=== PATIENT | male | born 1970 | race Caucasian/White ===

== ENCOUNTER 2017-06-26 18:20 | Emergency (ER) | payer SELFPAY ==
[2017-06-26] MEDS ORDERED: Albuterol/Ipratropium 3.0-0.5 MG/3 ML Neb Soln NEB ONE (18:38)
[2017-06-26] MEDS ORDERED: methylPREDNISolone Sodium Succinate 125 MG/2 ML SDV IVPUSH ONE (18:43)
[2017-06-26] MEDS ORDERED: Sodium Chloride 0.9% 1,000 ML IV ONE (18:43)
--- NOTE | 2017-06-26 18:43 | EDM.PDOC ---
ED HPI GENERAL MEDICAL PROBLEM - General Chief Complaint: Respiratory Problem Stated Complaint: CHEST HARD BREATHING Time Seen by Provider: 06/26/17 18:39 Source of Information: Reports: Patient History Limitations: Reports: No Limitations - History of Present Illness INITIAL COMMENTS - FREE TEXT/NARRATIVE: History of present illness: [40-year-old male comes in complaining of cough 2 weeks with increasing shortness of breath. Patient has a known diagnosis of COPD and continues to smoke.] Review of systems: As per history of present illness and below otherwise all systems reviewed and negative. Past medical history: As per history of present illness and as reviewed below otherwise noncontributory. Surgical history: As per history of present illness and as reviewed below otherwise noncontributory. Social history: No reported history of drug or alcohol abuse. Family history: As per history of present illness and as reviewed below otherwise noncontributory. Physical exam: HEENT: Atraumatic, normocephalic, pupils reactive, negative for conjunctival pallor or scleral icterus, mucous membranes moist, throat clear, neck supple, nontender, trachea midline. Lungs: Clear to auscultation, breath sounds equal bilaterally, chest nontender. Heart: S1S2, regular, negative for clicks, rubs, or JVD. Abdomen: Soft, nondistended, nontender. Negative for masses or hepatosplenomegaly. Negative for costovertebral tenderness. Pelvis: Stable nontender. Genitourinary: Deferred. Rectal: Deferred. Extremities: Atraumatic, negative for cords or calf pain. Neurovascular unremarkable. Neuro: Awake, alert, oriented. Cranial nerves II through XII unremarkable. Cerebellum unremarkable. Motor and sensory unremarkable throughout. Exam nonfocal. Patient has increased work of breathing but is maintaining sats greater than 90 oxygen is placed for supportive this time Diagnostics: [Chest x-ray, CBC, CMP, amylase, lipase] Therapeutics: [O2, IV fluids, Solu-Medrol] Impression: [#1COPD exacerbation acute on chronic] Plan: [Discharge to home on steroids antibiotics ensure that he has sufficient inhalers at home] Definitive disposition and diagnosis as appropriate pending reevaluation and review of above. - Related Data Allergies Allergy/AdvReac Type Severity Reaction Status Date / Time aspirin Allergy Nausea and Verified 06/26/17 18:40 Vomiting Home Meds: Home Meds Albuterol Sulfate [Proair Hfa] 2 puff IH Q6HR #1 hfa.aer.ad 06/26/17 [Rx] Amoxicillin/Potassium Clav [Augmentin 875-125 Tablet] 1 each PO BID #20 tablet 06/26/17 [Rx] Inhaler, Assist Devices [Space Chamber Plus] 1 each MC ASDIRECTED #1 spacer 05/05 [Rx] metFORMIN [Glucophage XR] 500 mg PO DAILY 06/26/17 [History] methylPREDNISolone [Medrol] 4 mg PO DAILY #21 tab.ds.pk 06/26/17 [Rx] ED ROS GENERAL - Review of Systems Review Of Systems: See Below (See history of present illness) ED EXAM, GENERAL - Physical Exam Exam: See Below (See history of present illness) Course - Vital Signs Last Recorded V/S: Last Vital Signs Temp 36.6 C 06/26/17 18:41 Pulse 81 06/26/17 19:30 Resp 22 H 06/26/17 19:30 BP 132/63 06/26/17 19:30 Pulse Ox 99 06/26/17 19:30 - Orders/Labs/Meds Orders: Active Orders 24 hr Category Date Time Status RT Aerosol Therapy [RC] ASDIRECTED Care 06/26/17 18:38 Active CXR [Chest 2V] [CR] Stat Exams 06/26/17 19:00 Taken Labs: Laboratory Tests 06/26/17 06/26/17 06/26/17 Range/Units 19:19 19:19 20:24 WBC 6.87 (4.0-11.0) K/uL RBC 4.26 L (4.50-5.90) M/uL Hgb 14.1 (13.0-17.0) g/dL Hct 40.6 (38.0-50.0) % MCV 95.3 (80.0-98.0) fL MCH 33.1 H (27.0-32.0) pg MCHC 34.7 (31.0-37.0) g/dL RDW Std Deviation 45.4 (28.0-62.0) fl RDW Coeff of Kunal 13 (11.0-15.0) % Plt Count 197 (150-400) K/uL MPV 9.40 (7.40-12.00) fL Neut % (Auto) 50.8 (48.0-80.0) % Lymph % (Auto) 36.4 (16.0-40.0) % [place] % (Auto) 11.1 (0.0-15.0) % Eos % (Auto) 1.6 (0.0-7.0) % Baso % (Auto) 0.1 (0.0-1.5) % Neut # (Auto) 3.5 (1.4-5.7) K/uL Lymph # (Auto) 2.5 H (0.6-2.4) K/uL [place] # (Auto) 0.8 (0.0-0.8) K/uL Eos # (Auto) 0.1 (0.0-0.7) K/uL Baso # (Auto) 0.0 (0.0-0.1) K/uL Nucleated RBC % 0.0 /100WBC Nucleated RBCs # 0 K/uL ABG pH 7.393 (7.35-7.45) ABG pCO2 38 (35-45) mmHG ABG pO2 79 (75-100) mmHG ABG HCO3 23 (22-26) mEq/L ABG Total CO2 20.6 ABG Base Excess -1.6 (-2.0-2.0) Sodium 140 (136-146) mmol/L Potassium 3.8 (3.5-5.1) mmol/L Chloride 110 (98-110) mmol/L Carbon Dioxide 21 (21-31) mmol/L BUN 16 (6.0-23.0) mg/dL Creatinine 0.9 (0.6-1.5) mg/dL Est Cr Clr Drug Dosing 133.95 mL/min Estimated GFR (MDRD) > 60.0 ml/min Glucose 143 H (60-110) mg/dL Calcium 8.7 L (8.8-10.8) mg/dL Total Bilirubin 0.3 (0.1-1.5) mg/dL AST 18 (5-40) IU/L ALT 37 (8-54) IU/L Alkaline Phosphatase 78 (40-150) Total Protein 6.7 (6.0-8.0) g/dL Albumin 3.9 (3.5-5.0) g/dL Globulin 2.8 (2.0-3.5) g/dL Albumin/Globulin Ratio 1.4 (1.3-2.8) Amylase 29 (10-90) U/L Lipase 26 (7-80) U/L Meds: Medications Discontinued Medications Generic Name Dose Route Start Last Admin Trade Name Ulisses PRN Reason Stop Dose Admin Albuterol/Ipratropium 3 ml 06/26/17 18:38 06/26/17 18:44 Duoneb 3.0-0.5 Mg/3 Ml NEB 06/26/17 18:39 3 ml ONETIME ONE Administration Sodium Chloride 1,000 mls @ 999 mls/hr 06/26/17 18:43 06/26/17 19:14 Normal Saline IV 06/26/17 19:43 999 mls/hr STAT ONE Administration Methylprednisolone Sodium Succinate 125 mg 06/26/17 18:43 06/26/17 19:14 Solu-Medrol IVPUSH 06/26/17 18:44 125 mg ONETIME ONE Administration Departure - Departure Time of Disposition: 20:35 Disposition: Home, Self-Care 01 Condition: Good Clinical Impression: COPD with acute exacerbation - Discharge Information Instructions: Chronic Obstructive Pulmonary Disease Exacerbation, [id number] Referrals: PCP,None [Primary Care Provider] - Forms: ED Department Discharge Additional Instructions: The following information is given to patients seen in the emergency department who are being discharged to home. This information is to outline your options for follow-up care. We provide all patients seen in our emergency department with a follow-up referral. The need for follow-up, as well as the timing and circumstances, are variable depending upon the specifics of your emergency department visit. If you don't have a primary care physician on staff, we will provide you with a referral. We always advise you to contact your personal physician following an emergency department visit to inform them of the circumstance of the visit and for follow-up with them and/or the need for any referrals to a consulting specialist. The emergency department will also refer you to a specialist when appropriate. This referral assures that you have the opportunity for follow-up care with a specialist. All of these measure are taken in an effort to provide you with optimal care, which includes your follow-up. Under all circumstances we always encourage you to contact your private physician who remains a resource for coordinating your care. When calling for follow-up care, please make the office aware that this follow-up is from your recent emergency room visit. If for any reason you are refused follow-up, please contact the [facility] Emergency Department at and asked to speak to the emergency department charge nurse. Take medication as directed Follow-up with PCP 1-2 days Return to ED as needed as discussed [facility] [address] [place] [id number] - My Orders Last 24 Hours: My Active Orders 06/26/17 18:38 RT Aerosol Therapy [RC] ASDIRECTED 06/26/17 19:00 CXR [Chest 2V] [CR] Stat - Assessment/Plan Last 24 Hours: My Active Orders 06/26/17 18:38 RT Aerosol Therapy [RC] ASDIRECTED 06/26/17 19:00 CXR [Chest 2V] [CR] Stat
[2017-06-26 19:45] LABS: CHLORIDE,CL 110 mmol/L (98-110); SODIUM,NA 140 mmol/L (136-146)
[2017-06-26 21:12] VITALS: BP 114/55
--- NOTE | 2017-06-27 10:35 | CR ---
EXAM DATE: 06/26/17 PATIENT'S AGE: 46 Patient: HIWOT GILMAN Facility: [place], [place] Site . Site : 08/26/1976 Study: XRay Chest [id number]/7/2017 7:58:09 PM Ordering Physician: Doctor Morataya Final Report: INDICATION: Shortness of breath. TECHNIQUE: Chest 2 views. COMPARISON: None FINDINGS: Cardiovascular and mediastinum: Cardiac silhouette is borderline to mildly enlarged. Pulmonary vasculature is normal. Mediastinum is within normal limits. Lungs and pleural spaces: Lungs are clear. No pleural effusion. No pneumothorax. Bones and soft tissues: No acute findings. IMPRESSION: No acute pulmonary process. Dictated by Nehemias Walsh MD @ 06/26/2017 8:25:43 PM Dictated by: Nehemias Walsh MD @ 06/26/2017 20:25:47 (Electronic Signature) Report Signed by Proxy. DARY
== END 2017-06-26 20:55 | disposition home or self-care (01) ==
LOC: EDBD → MW.ED 18:20 → MERGE 18:20 → MW.ED 20:50
DX: J44.1 Chronic obstructive pulmonary disease with (acute) exacerbation (principal); Z88.6 Allergy status to analgesic agent; Z79.899 Other long term (current) drug therapy
CPT/HCPCS: 36415; 36600; 71020; 80053; 82150; 82803; 83690; 85025; 96361; 96374; 99285; J2930; J7040; 99283

== ENCOUNTER 2017-12-18 21:00 | Emergency (ER) | payer SELFPAY ==
--- NOTE | 2017-12-18 21:25 | EDM.PDOC ---
ED HPI GENERAL MEDICAL PROBLEM - General Chief Complaint: Genitourinary Problem Stated Complaint: POSSIBLE INFECTION Time Seen by Provider: 12/18/17 21:05 Source of Information: Reports: Patient History Limitations: Reports: No Limitations - History of Present Illness INITIAL COMMENTS - FREE TEXT/NARRATIVE: HISTORY AND PHYSICAL: History of present illness: [Patient comes to the emergency room complaining of a "urinary tract infection" . Symptoms came on suddenly this morning and have gradually worsened throughout the day. He complains of pain to his lower abdomen and scrotum, as well as clear to green colored purulent discharge coming from his penis. It cooper when he urinates. He's had a couple of episodes of chills which he attributes to the pain. He has not had any fever. He has been with his current girlfriend for the past couple of months and they were last active approximately one week ago. His girlfriend apparently had a "urinary tract infection" one week ago which he believes has resolved. Smokes 2 pack of cigarettes per day and has a history of COPD.] Review of systems: As per history of present illness and below otherwise all systems reviewed and negative. Past medical history: As per history of present illness and as reviewed below otherwise noncontributory. Surgical history: As per history of present illness and as reviewed below otherwise noncontributory. Social history: No reported history of drug or alcohol abuse. Family history: As per history of present illness and as reviewed below otherwise noncontributory. Physical exam: HEENT: Atraumatic, normocephalic. Oral mucous membranes are pink and moist. Lungs: Clear to auscultation, breath sounds equal bilaterally. Heart: S1S2, regular, negative for clicks, rubs. Abdomen: Bowel sounds are normoactive throughout. Abdomen is obese, Soft, nondistended, nontender. Negative for masses guarding and rebound. Tender over suprapubic area. Negative for costovertebral tenderness. Pelvis: Stable nontender. Genitourinary: Deferred. Rectal: Deferred. Extremities: Atraumatic. Neurovascular unremarkable. Neuro: Awake, alert, oriented. Motor and sensory unremarkable throughout. Exam nonfocal. Diagnostics: [Urinalysis, gonorrhea and chlamydia] Therapeutics: [Rocephin 250 mg IM, azithromycin 1 g by mouth] Impression: [Dysuria Penile discharge] Plan: [Discussed with patient that his urinalysis does not show urinary tract infection. Will treat for chlamydia and gonorrhea with Rocephin 250 mg IM and azithromycin 1 g by mouth. He is instructed to not be sexually active with his current partner until she has been treated as well. Will notify patient of lab results when available. He verbalized understanding of today's discussion.] Definitive disposition and diagnosis as appropriate pending reevaluation and review of above. urinary Pain Score (Numeric/FACES): 10 - Related Data Allergies Allergy/AdvReac Type Severity Reaction Status Date / Time aspirin Allergy Nausea and Verified 06/26/17 18:40 Vomiting Home Meds: Home Meds Albuterol Sulfate [Proair Hfa] 2 puff IH Q6HR #1 hfa.aer.ad 06/26/17 [Rx] Amoxicillin/Potassium Clav [Augmentin 875-125 Tablet] 1 each PO BID #20 tablet 06/26/17 [Rx] Inhaler, Assist Devices [Space Chamber Plus] 1 each MC ASDIRECTED #1 spacer 05/05 [Rx] metFORMIN [Glucophage XR] 500 mg PO DAILY 06/26/17 [History] methylPREDNISolone [Medrol] 4 mg PO DAILY #21 tab.ds.pk 06/26/17 [Rx] Past Medical History HEENT History: Reports: None Cardiovascular History: Reports: None Respiratory History: Reports: Asthma, COPD Gastrointestinal History: Reports: None Genitourinary History: Reports: None Musculoskeletal History: Reports: None Neurological History: Reports: None Psychiatric History: Reports: None Endocrine/Metabolic History: Reports: Diabetes, Type II Hematologic History: Reports: None Immunologic History: Reports: None Oncologic (Cancer) History: Reports: None Dermatologic History: Reports: None - Infectious Disease History Infectious Disease History: Reports: None - Past Surgical History Head Surgeries/Procedures: Reports: None HEENT Surgical History: Reports: None Cardiovascular Surgical History: Reports: None Respiratory Surgical History: Reports: None GI Surgical History: Reports: None Male Surgical History: Reports: None Neurological Surgical History: Reports: None Musculoskeletal Surgical History: Reports: None Oncologic Surgical History: Reports: None Dermatological Surgical History: Reports: None Social & Family History - Family History Family Medical History: Noncontributory - Tobacco Use Smoking Status *Q: Current Every Day Smoker Years of Tobacco use: 30 Packs/Tins Daily: 2 - Caffeine Use Caffeine Use: Reports: Energy Drinks - Recreational Drug Use Recreational Drug Use: No ED ROS GENERAL - Review of Systems Review Of Systems: ROS reveals no pertinent complaints other than HPI. ED EXAM, GI/ABD - Physical Exam Exam: See Below Course - Vital Signs Last Recorded V/S: Last Vital Signs Temp 98.0 F 12/18/17 21:11 Pulse 117 H 12/18/17 21:11 Resp 20 12/18/17 21:11 BP 128/93 H 12/18/17 21:11 Pulse Ox 97 12/18/17 21:11 - Orders/Labs/Meds Orders: Active Orders 24 hr Category Date Time Status CHLAMYDIA AND GONORRHEA BY TMA Stat Lab 12/18/17 21:20 Received Azithromycin [Zithromax] Med 12/18/17 21:41 Once 1,000 mg PO Q24H ONE cefTRIAXone [Rocephin] 250 mg Med 12/18/17 21:41 Ordered Lidocaine 1% [Xylocaine-MPF 1%] 1 ml IM ONETIME Labs: Laboratory Tests 12/18/17 Range/Units 21:20 Urine Color YELLOW Urine Appearance CLEAR Urine pH 6.0 (5.0-8.0) Ur Specific [place] 1.015 (1.001-1.035) Urine Protein NEGATIVE (NEGATIVE) mg/dL Urine Glucose (UA) NEGATIVE (NEGATIVE) mg/dL Urine Ketones NEGATIVE (NEGATIVE) mg/dL Urine Occult Blood TRACE-INTACT (NEGATIVE) Urine Nitrite NEGATIVE (NEGATIVE) Urine Bilirubin NEGATIVE (NEGATIVE) Urine Urobilinogen 0.2 (<2.0) EU/dL Ur Leukocyte Esterase SMALL (NEGATIVE) Urine RBC 1-2 (0-2/HPF) Urine WBC 3-5 (0-5/HPF) Ur Epithelial Cells OCCASIONAL (NONE-FEW) Urine Bacteria RARE (NEGATIVE) Departure - Departure Time of Disposition: 21:45 Disposition: Home, Self-Care 01 Condition: Good Clinical Impression: Dysuria, Discharge from penis - Discharge Information Referrals: PCP,None [Primary Care Provider] - Forms: ED Department Discharge Additional Instructions: The following information is given to patients seen in the emergency department who are being discharged to home. This information is to outline your options for follow-up care. We provide all patients seen in our emergency department with a follow-up referral. The need for follow-up, as well as the timing and circumstances, are variable depending upon the specifics of your emergency department visit. If you don't have a primary care physician on staff, we will provide you with a referral. We always advise you to contact your personal physician following an emergency department visit to inform them of the circumstance of the visit and for follow-up with them and/or the need for any referrals to a consulting specialist. The emergency department will also refer you to a specialist when appropriate. This referral assures that you have the opportunity for follow-up care with a specialist. All of these measure are taken in an effort to provide you with optimal care, which includes your follow-up. Under all circumstances we always encourage you to contact your private physician who remains a resource for coordinating your care. When calling for follow-up care, please make the office aware that this follow-up is from your recent emergency room visit. If for any reason you are refused follow-up, please contact the [facility] emergency department at and asked to speak to the emergency department charge nurse. [facility] [address] [place] [address] Follow-up with your primary care provider at the clinic listed above in 48-72 hours. Avoid sexual contact and slight your partners treated. Tylenol alternating with ibuprofen as needed for discomfort. Return to ER as needed as discussed. - My Orders Last 24 Hours: My Active Orders 12/18/17 21:20 CHLAMYDIA AND GONORRHEA BY TMA Stat 12/18/17 21:41 Azithromycin [Zithromax] 1,000 mg PO Q24H ONE cefTRIAXone [Rocephin] 250 mg Lidocaine 1% [Xylocaine-MPF 1%] 1 ml IM ONETIME - Assessment/Plan Last 24 Hours: My Active Orders 12/18/17 21:20 CHLAMYDIA AND GONORRHEA BY TMA Stat 12/18/17 21:41 Azithromycin [Zithromax] 1,000 mg PO Q24H ONE cefTRIAXone [Rocephin] 250 mg Lidocaine 1% [Xylocaine-MPF 1%] 1 ml IM ONETIME
[2017-12-18] MEDS ORDERED: cefTRIAXone 250 MG in Lidocaine 1% 1 ML IM ONE (21:41)
[2017-12-18] MEDS ORDERED: Azithromycin 250 MG Tab PO ONE (21:41)
[2017-12-18 22:16] VITALS: BP 127/74
== END 2017-12-18 22:15 | disposition home or self-care (01) ==
LOC: MW.ED 21:00
DX: R30.0 Dysuria (principal); R36.9 Urethral discharge, unspecified; E11.9 Type 2 diabetes mellitus without complications; F17.210 Nicotine dependence, cigarettes, uncomplicated; Z88.6 Allergy status to analgesic agent; Z79.84 Long term (current) use of oral hypoglycemic drugs; Z79.899 Other long term (current) drug therapy
CPT/HCPCS: 81001; 87491; 87591; 96372; 99283; A9270; J0696

== ENCOUNTER 2018-11-09 13:10 | Emergency (ER) | payer SELFPAY ==
--- NOTE | 2018-11-09 13:33 | EDM.PDOC ---
ED HPI GENERAL MEDICAL PROBLEM - General Chief Complaint: Fever Stated Complaint: FEVER Time Seen by Provider: 11/09/18 13:28 Source of Information: Reports: Patient History Limitations: Reports: No Limitations - History of Present Illness INITIAL COMMENTS - FREE TEXT/NARRATIVE: HISTORY AND PHYSICAL: History of present illness: Patient is a 48-year-old male who presents to the emergency room today with complaints of intermittent fevers and headaches 2 weeks. He states that he feels warm to the touch and diaphoretic 2-3 times daily over the past 2 weeks. Reports that he has had a generalized migraine intermittently with light sensitivity. Does have a history of migraine headaches but has not had one in several years. The head injury, trauma or falls. Denies any visual changes, neck stiffness or pain. He has some diffuse lower abdominal pain with palpation. Denies any diarrhea or constipation. Denies any blood in his stools stating his bowel movements are normal. He has a generalized cough which she attributes to his routine smoking. This is nonproductive. He denies any chest pain, shortness of breath, nausea, vomiting. He has been eating and drinking appropriately. Review of systems: As per history of present illness and below otherwise all systems reviewed and negative. Past medical history: As per history of present illness and as reviewed below otherwise noncontributory. Surgical history: As per history of present illness and as reviewed below otherwise noncontributory. Social history: See social history for further information Family history: As per history of present illness and as reviewed below otherwise noncontributory. Physical exam: General: Well-developed and well-nourished 48-year-old male. Alert and oriented. Nontoxic appearing and in no acute distress. HEENT: Atraumatic, normocephalic, pupils equal and reactive bilaterally, negative for conjunctival pallor or scleral icterus, mucous membranes moist, TMs normal bilaterally, throat clear, neck supple, nontender, trachea midline. No drooling or trismus noted. No meningeal signs. No hot potato voice noted. Lungs: Clear to auscultation, breath sounds equal bilaterally, chest nontender. Heart: S1S2, regular rate and rhythm without overt murmur Abdomen: Soft, obese, nontender. Negative for masses or hepatosplenomegaly. Negative for costovertebral tenderness. Pelvis: Stable nontender. Genitourinary: Deferred. Rectal: Deferred. Skin: Intact, warm, dry. No lesions or rashes noted. Extremities: Atraumatic, negative for cords or calf pain. Neurovascular unremarkable. Neuro: Awake, alert, oriented. Cranial nerves II through XII unremarkable. Cerebellum unremarkable. Motor and sensory unremarkable throughout. Exam nonfocal. Notes: Negative head CT. EKG shows no acute findings. Lab work is unremarkable. Vital signs remain stable. At this time I do not have a definitive cause for patient' s symptoms. Encouraged him to follow up with his primary care provider in the next 1-2 days. He is agreeable to plan of care and denies any further questions at this time. Diagnostics: CBC, CMP, UA, chest x-ray, EKG, head CT Therapeutics: IV fluid, Zofran, Toradol Prescription: Pro-Air Inhaler Impression: Viral illness Plan: 1. Stop smoking. Drink plenty of fluids to prevent dehydration. Small frequent meals, bland diet until symptoms have improved. 2. Continue using Tylenol and/or ibuprofen as needed for pain management. 3. Please follow-up with your primary care provider in the next 1-2 days for reevaluation and further management. 4. Return to the ED as needed and as discussed. Definitive disposition and diagnosis as appropriate pending reevaluation and review of above. Duration: Week(s): abdominal pain Pain Score (Numeric/FACES): 2 - Related Data Allergies Allergy/AdvReac Type Severity Reaction Status Date / Time aspirin Allergy Nausea and Verified 11/09/18 13:51 Vomiting Home Meds: Home Meds . [No Known Home Meds] 11/09/18 [History] Past Medical History HEENT History: Reports: None Cardiovascular History: Reports: None Respiratory History: Reports: Asthma, COPD Gastrointestinal History: Reports: None Genitourinary History: Reports: None Musculoskeletal History: Reports: None Neurological History: Reports: None Psychiatric History: Reports: None Endocrine/Metabolic History: Reports: Diabetes, Type II Hematologic History: Reports: None Immunologic History: Reports: None Oncologic (Cancer) History: Reports: None Dermatologic History: Reports: None - Infectious Disease History Infectious Disease History: Reports: None - Past Surgical History Head Surgeries/Procedures: Reports: None HEENT Surgical History: Reports: None Cardiovascular Surgical History: Reports: None Respiratory Surgical History: Reports: None GI Surgical History: Reports: None Male Surgical History: Reports: None Neurological Surgical History: Reports: None Musculoskeletal Surgical History: Reports: None Oncologic Surgical History: Reports: None Dermatological Surgical History: Reports: None Social & Family History - Family History Family Medical History: Noncontributory - Caffeine Use Caffeine Use: Reports: Energy Drinks ED ROS ENT - Review of Systems Review Of Systems: ROS reveals no pertinent complaints other than HPI. ED EXAM, ENT - Physical Exam Exam: See Below (See dictation) Course - Vital Signs Last Recorded V/S: Last Vital Signs Temp 96.5 F 11/09/18 13:10 Pulse 79 11/09/18 13:10 Resp 18 11/09/18 13:10 BP 127/69 11/09/18 13:10 Pulse Ox 98 11/09/18 13:10 - Orders/Labs/Meds Orders: Active Orders 24 hr Category Date Time Status EKG Documentation Completion [RC] STAT Care 11/09/18 13:43 Active Labs: Laboratory Tests 11/09/18 11/09/18 11/09/18 Range/Units 14:20 14:20 14:25 WBC 6.97 (4.0-11.0) K/uL RBC 4.67 (4.50-5.90) M/uL Hgb 15.6 (13.0-17.0) g/dL Hct 44.8 (38.0-50.0) % MCV 95.9 (80.0-98.0) fL MCH 33.4 H (27.0-32.0) pg MCHC 34.8 (31.0-37.0) g/dL RDW Std Deviation 45.8 (28.0-62.0) fl RDW Coeff of Kunal 13 (11.0-15.0) % Plt Count 217 (150-400) K/uL MPV 9.60 (7.40-12.00) fL Neut % (Auto) 48.0 (48.0-80.0) % Lymph % (Auto) 43.6 H (16.0-40.0) % Dare % (Auto) 6.5 (0.0-15.0) % Eos % (Auto) 1.6 (0.0-7.0) % Baso % (Auto) 0.3 (0.0-1.5) % Neut # (Auto) 3.4 (1.4-5.7) K/uL Lymph # (Auto) 3.0 H (0.6-2.4) K/uL Dare # (Auto) 0.5 (0.0-0.8) K/uL Eos # (Auto) 0.1 (0.0-0.7) K/uL Baso # (Auto) 0.0 (0.0-0.1) K/uL Nucleated RBC % 0.0 /100WBC Nucleated RBCs # 0 K/uL Sodium 139 (136-148) mmol/L Potassium 4.1 (3.5-5.1) mmol/L Chloride 107 (98-107) mmol/L Carbon Dioxide 24.4 (21.0-32.0) mmol/L BUN 17 (7.0-18.0) mg/dL Creatinine 0.8 (0.8-1.3) mg/dL Est Cr Clr Drug Dosing 134.97 mL/min Estimated GFR (MDRD) > 60.0 ml/min Glucose 192 H (74-106) mg/dL Calcium 8.9 (8.5-10.1) mg/dL Total Bilirubin 0.3 (0.2-1.0) mg/dL AST 9 L (15-37) IU/L ALT 29 (14-63) IU/L Alkaline Phosphatase 98 (46-116) U/L Total Protein 7.4 (6.4-8.2) g/dL Albumin 3.8 (3.4-5.0) g/dL Globulin 3.6 (2.6-4.0) g/dL Albumin/Globulin Ratio 1.1 (0.9-1.6) Urine Color YELLOW Urine Appearance CLEAR Urine pH 6.0 (5.0-8.0) Ur Specific [place] >= 1.030 (1.001-1.035) Urine Protein NEGATIVE (NEGATIVE) mg/dL Urine Glucose (UA) 500 H (NEGATIVE) mg/dL Urine Ketones NEGATIVE (NEGATIVE) mg/dL Urine Occult Blood NEGATIVE (NEGATIVE) Urine Nitrite NEGATIVE (NEGATIVE) Urine Bilirubin NEGATIVE (NEGATIVE) Urine Urobilinogen 0.2 (<2.0) EU/dL Ur Leukocyte Esterase NEGATIVE (NEGATIVE) Meds: Medications Discontinued Medications Generic Name Dose Route Start Last Admin Trade Name Freq PRN Reason Stop Dose Admin Sodium Chloride 1,000 mls @ 999 mls/hr 11/09/18 13:43 11/09/18 14:57 Normal Saline IV 11/09/18 14:43 999 mls/hr STAT ONE Administration Ketorolac Tromethamine 30 mg 11/09/18 13:43 11/09/18 14:57 Toradol IVPUSH 11/09/18 13:44 30 mg ONETIME ONE Administration Ondansetron HCl 4 mg 11/09/18 13:43 11/09/18 14:58 Zofran IVPUSH 11/09/18 13:44 4 mg ONETIME ONE Administration Departure - Departure Time of Disposition: 15:06 Disposition: Home, Self-Care 01 Clinical Impression: Viral illness Fatigue Qualifiers: Fatigue type: unspecified Qualified Code(s): R53.83 - Other fatigue - Discharge Information Instructions: Viral Illness, Adult Referrals: PCP,None [Primary Care Provider] - Forms: ED Department Discharge Additional Instructions: The following information is given to patients seen in the emergency department who are being discharged to home. This information is to outline your options for follow-up care. We provide all patients seen in our emergency department with a follow-up referral. The need for follow-up, as well as the timing and circumstances, are variable depending upon the specifics of your emergency department visit. If you don't have a primary care physician on staff, we will provide you with a referral. We always advise you to contact your personal physician following an emergency department visit to inform them of the circumstance of the visit and for follow-up with them and/or the need for any referrals to a consulting specialist. The emergency department will also refer you to a specialist when appropriate. This referral assures that you have the opportunity for follow-up care with a specialist. All of these measure are taken in an effort to provide you with optimal care, which includes your follow-up. Under all circumstances we always encourage you to contact your private physician who remains a resource for coordinating your care. When calling for follow-up care, please make the office aware that this follow-up is from your recent emergency room visit. If for any reason you are refused follow-up, please contact the [facility] Emergency Department at and asked to speak to the emergency department charge nurse. [facility] [address] [place] [address] [facility] [address] [place] [address] 1. Stop smoking. Drink plenty of fluids to prevent dehydration. Small frequent meals, bland diet until symptoms have improved. 2. Continue using Tylenol and/or ibuprofen as needed for pain management. 3. Please follow-up with your primary care provider in the next 1-2 days for reevaluation and further management. 4. Return to the ED as needed and as discussed. - My Orders Last 24 Hours: My Active Orders 11/09/18 13:43 EKG Documentation Completion [RC] STAT - Assessment/Plan Last 24 Hours: My Active Orders 11/09/18 13:43 EKG Documentation Completion [RC] STAT
[2018-11-09] MEDS ORDERED: Ondansetron 4 MG/2 ML SDV IVPUSH ONE (13:43)
[2018-11-09] MEDS ORDERED: Sodium Chloride 0.9% 1,000 ML IV ONE (13:43)
[2018-11-09] MEDS ORDERED: Ketorolac 30 MG/ML SDV IVPUSH ONE (13:43)
[2018-11-09 13:54] VITALS: BP 127/69
--- NOTE | 2018-11-09 14:26 | CT ---
EXAMINATION: Non contrast CT head. Coronal and sagittal reformats. HISTORY: Headaches FINDINGS: No evidence of intra or extra axial hemorrhage, mass, midline shift, hydrocephalus or edema. No hypoattenuation changes in the major vascular territories to suggest acute infarct. No abnormal intracranial calcifications are detected. No evidence of substantial vascular calcifications. Paranasal sinuses and mastoid air cells are well aerated without substantial findings. Orbits and globes are symmetric. Pituitary fossa appears unremarkable. Calvarium is intact. No evidence of skull fracture. IMPRESSION: No acute intracranial findings.
--- NOTE | 2018-11-09 14:48 | CR ---
EXAMINATION: Two-view chest (PA and Lateral views). HISTORY: Headaches. FINDINGS: The trachea is midline. The cardiomediastinal silhouette is within normal limits. No pulmonary infiltrates, effusions or pneumothorax. Osseous structures appear unremarkable. IMPRESSION: No acute cardiopulmonary process.
[2018-11-09 15:00] LABS: CHLORIDE,CL 107 mmol/L (98-107); SODIUM,NA 139 mmol/L (136-148)
== END 2018-11-09 15:25 | disposition home or self-care (01) ==
LOC: MW.ED 13:10
DX: B34.9 Viral infection, unspecified (principal); E11.9 Type 2 diabetes mellitus without complications; R53.83 Other fatigue; Z88.8 Allergy status to other drugs, medicaments and biological substances
CPT/HCPCS: 70450; 71046; 80053; 81003; 85025; 87804; 93005; 96374; 96375; 99284; J1885; J2405; J7040

== ENCOUNTER 2018-12-25 12:25 | Emergency (ER) | payer BC, OTHER ==
--- NOTE | 2018-12-25 12:41 | EDM.PDOC ---
ED HPI GENERAL MEDICAL PROBLEM - General Chief Complaint: Back Pain or Injury Stated Complaint: PAIN IN BACK Time Seen by Provider: 12/25/18 12:25 Source of Information: Reports: Patient History Limitations: Reports: No Limitations - History of Present Illness INITIAL COMMENTS - FREE TEXT/NARRATIVE: History of present illness: []Patient complains of severe body aches, headache and chills for 2 days. Review of systems: As per history of present illness and below otherwise all systems reviewed and negative. Past medical history: As per history of present illness and as reviewed below otherwise noncontributory. Surgical history: As per history of present illness and as reviewed below otherwise noncontributory. Social history: No reported history of drug or alcohol abuse. Family history: As per history of present illness and as reviewed below otherwise noncontributory. Physical exam: General: Well developed, well nourished in NAD HEENT: Atraumatic, normocephalic, pupils reactive, negative for conjunctival pallor or scleral icterus, mucous membranes moist, throat clear, no erythema or exudate, neck supple, no rigidity, nontender, trachea midline. Sinus tenderness to palpation but no stridor Lungs: Clear to auscultation, breath sounds equal bilaterally, chest nontender. Heart: S1S2, regular, negative for clicks, rubs, or JVD. Abdomen: NABS, Soft, nondistended, nontender. Negative for masses or hepatosplenomegaly. Negative for costovertebral tenderness. Pelvis: Stable nontender. Genitourinary: Deferred. Rectal: Deferred. Extremities: Atraumatic, negative for cords or calf pain. Neurovascular unremarkable. Neuro: Awake, alert, oriented. Cranial nerves II through XII unremarkable. Cerebellum unremarkable. Motor and sensory unremarkable throughout. Exam nonfocal. Kernig's and Brudzinski's Skin:warm and dry Diagnostics: CBC, chemistry, CT head, influenza-neg Therapeutics: IV hydration, Toradol, morphine, Zofran ED Course: Improved Impression: Generalized body aches Prescriptions: None Plan: Follow-up with primary care Definitive disposition and diagnosis as appropriate pending reevaluation and review of above. Bilateral Hip Pain Score (Numeric/FACES): 9 - Related Data Allergies Allergy/AdvReac Type Severity Reaction Status Date / Time aspirin Allergy Nausea and Verified 12/25/18 12:42 Vomiting Home Meds: Home Meds Albuterol Sulfate [Proair Hfa] 1 inhaler INH ASDIRECTED 12/25/18 [History] Past Medical History HEENT History: Reports: None Cardiovascular History: Reports: None Respiratory History: Reports: Asthma, COPD Gastrointestinal History: Reports: None Genitourinary History: Reports: None Musculoskeletal History: Reports: None Neurological History: Reports: None Psychiatric History: Reports: None Endocrine/Metabolic History: Reports: Diabetes, Type II Hematologic History: Reports: None Immunologic History: Reports: None Oncologic (Cancer) History: Reports: None Dermatologic History: Reports: None - Infectious Disease History Infectious Disease History: Reports: None - Past Surgical History Head Surgeries/Procedures: Reports: None HEENT Surgical History: Reports: None Cardiovascular Surgical History: Reports: None Respiratory Surgical History: Reports: None GI Surgical History: Reports: None Male Surgical History: Reports: None Neurological Surgical History: Reports: None Musculoskeletal Surgical History: Reports: None Oncologic Surgical History: Reports: None Dermatological Surgical History: Reports: None Social & Family History - Family History Family Medical History: Noncontributory - Caffeine Use Caffeine Use: Reports: Energy Drinks ED ROS GENERAL - Review of Systems Review Of Systems: ROS reveals no pertinent complaints other than HPI. ED EXAM,LOWER BACK PAIN/INJURY - Physical Exam Exam: See Below (See history of present illness) Course - Vital Signs Last Recorded V/S: Last Vital Signs Temp 96.8 F 12/25/18 14:21 Pulse 98 12/25/18 14:21 Resp 21 H 12/25/18 14:21 BP 141/97 H 12/25/18 14:21 Pulse Ox 94 L 12/25/18 14:21 - Orders/Labs/Meds Orders: Active Orders 24 hr Category Date Time Status DRUG SCREEN, URINE [URCHEM] Stat Lab 12/25/18 14:25 Stop Req UA W/MICROSCOPIC [URIN] Stat Lab 12/25/18 14:49 Stop Req Sodium Chloride 0.9% [Saline Flush] Med 12/25/18 13:07 Active 10 ml FLUSH ASDIRECTED PRN Sodium Chloride 0.9% [Saline Flush] Med 12/25/18 13:07 Active 2.5 ml FLUSH ASDIRECTED PRN Saline Lock Insert [OM.PC] Stat Oth 12/25/18 13:07 Ordered Medication Orders Sodium Chloride (Saline Flush) 10 ml FLUSH ASDIRECTED PRN PRN Reason: Keep Vein Open Last Admin: 12/25/18 13:24 Dose: 10 ml Sodium Chloride (Saline Flush) 2.5 ml FLUSH ASDIRECTED PRN PRN Reason: Keep Vein Open Last Admin: 12/25/18 13:24 Dose: 2.5 ml Labs: Laboratory Tests 12/25/18 12/25/18 Range/Units 13:20 13:20 WBC 8.68 (4.0-11.0) K/uL RBC 4.64 (4.50-5.90) M/uL Hgb 15.4 (13.0-17.0) g/dL Hct 43.8 (38.0-50.0) % MCV 94.4 (80.0-98.0) fL MCH 33.2 H (27.0-32.0) pg MCHC 35.2 (31.0-37.0) g/dL RDW Std Deviation 44.0 (28.0-62.0) fl RDW Coeff of Kunal 13 (11.0-15.0) % Plt Count 221 (150-400) K/uL MPV 9.60 (7.40-12.00) fL Neut % (Auto) 47.8 L (48.0-80.0) % Lymph % (Auto) 41.7 H (16.0-40.0) % Greene % (Auto) 8.9 (0.0-15.0) % Eos % (Auto) 1.3 (0.0-7.0) % Baso % (Auto) 0.3 (0.0-1.5) % Neut # (Auto) 4.2 (1.4-5.7) K/uL Lymph # (Auto) 3.6 H (0.6-2.4) K/uL Greene # (Auto) 0.8 (0.0-0.8) K/uL Eos # (Auto) 0.1 (0.0-0.7) K/uL Baso # (Auto) 0.0 (0.0-0.1) K/uL Nucleated RBC % 0.0 /100WBC Nucleated RBCs # 0 K/uL Sodium 141 (136-148) mmol/L Potassium 4.1 (3.5-5.1) mmol/L Chloride 106 (98-107) mmol/L Carbon Dioxide 22.8 (21.0-32.0) mmol/L BUN 13 (7.0-18.0) mg/dL Creatinine 0.8 (0.8-1.3) mg/dL Est Cr Clr Drug Dosing 134.97 mL/min Estimated GFR (MDRD) > 60.0 ml/min Glucose 99 (74-106) mg/dL Calcium 8.9 (8.5-10.1) mg/dL Total Bilirubin 0.7 (0.2-1.0) mg/dL AST 22 (15-37) IU/L ALT 32 (14-63) IU/L Alkaline Phosphatase 82 (46-116) U/L Total Protein 7.7 (6.4-8.2) g/dL Albumin 4.0 (3.4-5.0) g/dL Globulin 3.7 (2.6-4.0) g/dL Albumin/Globulin Ratio 1.1 (0.9-1.6) Meds: Medications Generic Name Dose Route Start Last Admin Trade Name Freq PRN Reason Stop Dose Admin Sodium Chloride 10 ml 12/25/18 13:07 12/25/18 13:24 Saline Flush FLUSH 10 ml ASDIRECTED PRN Administration Keep Vein Open Sodium Chloride 2.5 ml 12/25/18 13:07 12/25/18 13:24 Saline Flush FLUSH 2.5 ml ASDIRECTED PRN Administration Keep Vein Open Discontinued Medications Generic Name Dose Route Start Last Admin Trade Name Freq PRN Reason Stop Dose Admin Sodium Chloride 1,000 mls @ 999 mls/hr 12/25/18 13:07 12/25/18 13:24 Normal Saline IV 12/25/18 14:07 999 mls/hr .Bolus ONE Administration Sodium Chloride 1,000 mls @ 999 mls/hr 12/25/18 14:32 12/25/18 15:04 Normal Saline IV 12/25/18 15:32 999 mls/hr .Bolus ONE Administration Ketorolac Tromethamine 30 mg 12/25/18 14:12 12/25/18 14:16 Toradol IVPUSH 12/25/18 14:13 30 mg ONETIME ONE Administration Morphine Sulfate 6 mg 12/25/18 13:07 12/25/18 13:24 Morphine IVPUSH 12/25/18 13:08 6 mg ONETIME ONE Administration Ondansetron HCl 4 mg 12/25/18 13:09 12/25/18 13:24 Zofran IVPUSH 12/25/18 13:10 4 mg ONETIME ONE Administration Departure - Departure Time of Disposition: 15:40 Disposition: Home, Self-Care 01 Condition: Good Clinical Impression: Generalized body aches - Discharge Information *PRESCRIPTION DRUG MONITORING PROGRAM REVIEWED*: No *COPY OF PRESCRIPTION DRUG MONITORING REPORT IN PATIENT LUDY: No Referrals: PCP,Unknown [Primary Care Provider] - Forms: ED Department Discharge Additional Instructions: The following information is given to patients seen in the emergency department who are being discharged to home. This information is to outline your options for follow-up care. We provide all patients seen in our emergency department with a follow-up referral. The need for follow-up, as well as the timing and circumstances, are variable depending upon the specifics of your emergency department visit. If you don't have a primary care physician on staff, we will provide you with a referral. We always advise you to contact your personal physician following an emergency department visit to inform them of the circumstance of the visit and for follow-up with them and/or the need for any referrals to a consulting specialist. The emergency department will also refer you to a specialist when appropriate. This referral assures that you have the opportunity for follow-up care with a specialist. All of these measure are taken in an effort to provide you with optimal care, which includes your follow-up. Under all circumstances we always encourage you to contact your private physician who remains a resource for coordinating your care. When calling for follow-up care, please make the office aware that this follow-up is from your recent emergency room visit. If for any reason you are refused follow-up, please contact the [facility] Emergency Department at and asked to speak to the emergency department charge nursse [facility] [address] [place] [phone] - My Orders Last 24 Hours: My Active Orders 12/25/18 13:07 Sodium Chloride 0.9% [Saline Flush] 10 ml FLUSH ASDIRECTED PRN Sodium Chloride 0.9% [Saline Flush] 2.5 ml FLUSH ASDIRECTED PRN Saline Lock Insert [OM.PC] Stat 12/25/18 14:25 DRUG SCREEN, URINE [URCHEM] Stat 12/25/18 14:49 UA W/MICROSCOPIC [URIN] Stat - Assessment/Plan Last 24 Hours: My Active Orders 12/25/18 13:07 Sodium Chloride 0.9% [Saline Flush] 10 ml FLUSH ASDIRECTED PRN Sodium Chloride 0.9% [Saline Flush] 2.5 ml FLUSH ASDIRECTED PRN Saline Lock Insert [OM.PC] Stat 12/25/18 14:25 DRUG SCREEN, URINE [URCHEM] Stat 12/25/18 14:49 UA W/MICROSCOPIC [URIN] Stat
[2018-12-25] MEDS ORDERED: Sodium Chloride 0.9% 2.5 ML Syringe FLUSH PRN (13:07)
[2018-12-25] MEDS ORDERED: Morphine 10 MG/ML Syringe IVPUSH ONE (13:07)
[2018-12-25] MEDS ORDERED: Sodium Chloride 0.9% 1,000 ML IV ONE ×2 (13:07→14:32)
[2018-12-25] MEDS ORDERED: Sodium Chloride 0.9% 10 ML Syringe FLUSH PRN (13:07)
[2018-12-25] MEDS ORDERED: Ondansetron 4 MG/2 ML SDV IVPUSH ONE (13:09)
--- NOTE | 2018-12-25 14:03 | CT ---
INDICATION: Headache TECHNIQUE: CT Head without i.v. contrast. COMPARISON: 11/09/18 FINDINGS: CSF space: The ventricles are normal for age. Brain: No evidence of mass, acute infarction or hemorrhage is seen. No mass-effect or midline shift is seen. The brain parenchyma is otherwise normal in appearance with preservation of the rosas-white matter junction. Calvarium: The visualized paranasal sinuses are well aerated. The mastoid air cells are clear. The visualized orbits are grossly unremarkable. The calvarium is unremarkable in appearance with no fractures identified. IMPRESSION: 1. No evidence of acute infarction, intracranial hemorrhage, or mass-effect seen. Please note that all CT scans at this facility use dose modulation, iterative reconstruction, and/or weight-based dosing when appropriate to reduce radiation dose to as low as reasonably achievable. Dictated by: Jack Nance MD @ 12/25/2018 14:01:45 (Electronically Signed)
[2018-12-25] MEDS ORDERED: Ketorolac 30 MG/ML SDV IVPUSH ONE (14:12)
[2018-12-25 14:14] LABS: CHLORIDE,CL 106 mmol/L (98-107); SODIUM,NA 141 mmol/L (136-148)
[2018-12-25 14:22] VITALS: BP 141/97
== END 2018-12-25 16:12 | disposition home or self-care (01) ==
LOC: MW.ED 12:25
DX: M79.10 Myalgia, unspecified site (principal); E11.9 Type 2 diabetes mellitus without complications; Z88.6 Allergy status to analgesic agent
CPT/HCPCS: 36415; 70450; 80053; 85025; 87804; 96361; 96374; 96375; 99284; J1885; J2270; J2405; J7040; 99283

== ENCOUNTER 2019-08-04 10:47 | Emergency (ER) | payer BC ==
[2019-08-04 11:24] VITALS: BP 123/71; PULSE 93
[2019-08-04] MEDS ORDERED: Lidocaine 2% Viscous Solution 15 ML Cup PO ONE (11:30)
[2019-08-04] MEDS ORDERED: Benzocaine 20% Topical Spray UD MUCMEM ONE (11:30)
--- NOTE | 2019-08-04 11:43 | EDM.PDOC ---
<Laith Zarate - Last Filed: 08/04/19 12:03> ED HPI GENERAL MEDICAL PROBLEM - General Chief Complaint: General Stated Complaint: TOOTHACHE Time Seen by Provider: 08/04/19 10:55 Source of Information: Reports: Patient History Limitations: Reports: No Limitations - History of Present Illness INITIAL COMMENTS - FREE TEXT/NARRATIVE: HISTORY AND PHYSICAL: History of present illness: 48-year-old male presents today complaining of tooth pain. He reports having 9 teeth pulled out approximately 3 days ago. He reports that after his dental surgery he's had swelling of his gums and has been in a lot of pain. He was given a prescription for Vicodin by his dentist and patient reports running out of his medication today. He has tried taking [id number] ibuprofen and Advil has only had very minimal relief. Pain is rated as a 10 out of 10 today. His dentist is located in [place], [place] and he has not followed up with his dentist. He reports that he has no follow-up scheduled with his dentist at this time. Patient reports that he has had subjective fevers and nausea. Furthermore, patient complains of left leg skin infection, which was diagnosed approximately 3 weeks ago. He reports that he was diagnosed with cellulitis and has been attending wound care for the past 3 weeks but has not been following- up with his appointments for the past 1 week now due to his work schedule. Since missing his wound care appointments, he reports experiencing mild pain and redness around the wound site. He reports that his wound care provider is located in [place], [place]. Patient denies having any headache, blurry vision, sore throat, cough, shortness of breath, chest pain, vomiting, abdominal pain, diarrhea, numbness or tingling. Review of systems: As per history of present illness and below otherwise all systems reviewed and negative. Past medical history: As per history of present illness and as reviewed below otherwise noncontributory. Surgical history: As per history of present illness and as reviewed below otherwise noncontributory. Social history: No reported history of drug or alcohol abuse. Family history: As per history of present illness and as reviewed below otherwise noncontributory. Physical exam: HEENT: Atraumatic, normocephalic, pupils reactive, negative for conjunctival pallor or scleral icterus, mucous membranes moist, no teeth present on upper jaw post-dental extraction, gingival edema with purulent discharge from dental extraction sites, throat clear, neck supple, nontender, trachea midline. Lungs: Clear to auscultation, breath sounds equal bilaterally. Heart: S1S2, regular. Abdomen: Soft, nondistended, nontender. normal bowel sounds. Pelvis: Deferred. Genitourinary: Deferred. Rectal: Deferred. Extremities: Left lower extremity: - 1cm x 1cm wound site with eschar on left anterior leg with surrounding erythema, no active drainage, mild tenderness to palpation, no increased warmth Neuro: Awake, alert, oriented. Cranial nerves II through XII unremarkable. Exam nonfocal. Diagnostics: Left leg x-ray Impression: 1. Dental pain post-dental extraction. 2. Left lower extremity cellulitis. Plan: 1. Patient care transitioned to ER provider Jackson Yao at 12:00 PM. Definitive disposition and diagnosis as appropriate pending reevaluation and review of above. dental pain post tooth extraction Pain Score (Numeric/FACES): 10 - Related Data Allergies Allergy/AdvReac Type Severity Reaction Status Date / Time aspirin Allergy Nausea and Verified 08/04/19 11:13 Vomiting Home Meds: Home Meds Acetaminophen/HYDROcodone [Minerva 325-5 MG] 1 tab PO Q6H PRN 3 Days #10 tablet [Rx] Clindamycin HCl 150 mg PO TID 7 Days #63 capsule 08/04/19 [Rx] Past Medical History HEENT History: Reports: None Cardiovascular History: Reports: None Respiratory History: Reports: Asthma, COPD Gastrointestinal History: Reports: None Genitourinary History: Reports: None Musculoskeletal History: Reports: None Neurological History: Reports: None Other Neuro History: Patient states has history of viral meningitis. Psychiatric History: Reports: None Endocrine/Metabolic History: Reports: Diabetes, Type II Hematologic History: Reports: None Immunologic History: Reports: None Oncologic (Cancer) History: Reports: None Dermatologic History: Reports: None - Infectious Disease History Infectious Disease History: Reports: Other (See Below) Other Infectious Disease History: staph infection of a wound - Past Surgical History Head Surgeries/Procedures: Reports: None HEENT Surgical History: Reports: Oral Surgery Cardiovascular Surgical History: Reports: None Respiratory Surgical History: Reports: None GI Surgical History: Reports: None Male Surgical History: Reports: None Neurological Surgical History: Reports: None Musculoskeletal Surgical History: Reports: None Oncologic Surgical History: Reports: None Dermatological Surgical History: Reports: None Social & Family History - Family History Family Medical History: Noncontributory - Caffeine Use Caffeine Use: Reports: Energy Drinks ED ROS GENERAL - Review of Systems Review Of Systems: ROS reveals no pertinent complaints other than HPI. ED EXAM, GENERAL - Physical Exam Exam: See Below Course - Vital Signs Last Recorded V/S: Last Vital Signs Temp 96.9 F 08/04/19 11:07 Pulse 93 08/04/19 11:07 Resp 18 08/04/19 11:07 BP 123/71 08/04/19 11:07 Pulse Ox 94 L 08/04/19 11:07 - Orders/Labs/Meds Meds: Medications Discontinued Medications Generic Name Dose Route Start Last Admin Trade Name Freq PRN Reason Stop Dose Admin Benzocaine 2 each 08/04/19 11:30 Hurricaine One 20% MUCMEM 08/04/19 11:31 ONETIME ONE Lidocaine HCl 15 ml 08/04/19 11:30 Xylocaine 2% Viscous PO 08/04/19 11:31 ONETIME ONE Departure - Departure Disposition: Home, Self-Care 01 Clinical Impression: Dentalgia, Cellulitis - Discharge Information Prescriptions: Acetaminophen/HYDROcodone [Minerva 325-5 MG] 1 tab PO Q6H PRN 3 Days #10 tablet PRN Reason: Pain Clindamycin HCl 150 mg PO TID 7 Days #63 capsule Referrals: PCP,Unknown [Primary Care Provider] - Forms: ED Department Discharge Additional Instructions: The following information is given to patients seen in the emergency department who are being discharged to home. This information is to outline your options for follow-up care. We provide all patients seen in our emergency department with a follow-up referral. The need for follow-up, as well as the timing and circumstances, are variable depending upon the specifics of your emergency department visit. If you don't have a primary care physician on staff, we will provide you with a referral. We always advise you to contact your personal physician following an emergency department visit to inform them of the circumstance of the visit and for follow-up with them and/or the need for any referrals to a consulting specialist. The emergency department will also refer you to a specialist when appropriate. This referral assures that you have the opportunity for follow-up care with a specialist. All of these measure are taken in an effort to provide you with optimal care, which includes your follow-up. Under all circumstances we always encourage you to contact your private physician who remains a resource for coordinating your care. When calling for follow-up care, please make the office aware that this follow-up is from your recent emergency room visit. If for any reason you are refused follow-up, please contact the [facility] Emergency Department at and asked to speak to the emergency department charge nurse. [facility] [address] [place] [address] [id number] [address] [address] Take medication as instructed Follow up with your dentist and wound care return to ED as needed as discussed <Jackson Yao - Last Filed: 08/04/19 13:03> Departure - Departure Time of Disposition: 13:02 Condition: Good
--- NOTE | 2019-08-04 13:01 | CR ---
Left tibia and fibula: AP and lateral views left tibia and fibula were obtained. Comparison: No previous study. No fracture or other bony abnormality is seen. Impression: No abnormality is identified on two-view left tibia and fibula exam. Diagnostic code #1 MTDD
== END 2019-08-04 13:14 | disposition home or self-care (01) ==
LOC: MW.ED 10:47
DX: K08.89 Other specified disorders of teeth and supporting structures (principal); G89.18 Other acute postprocedural pain; L03.116 Cellulitis of left lower limb; E11.9 Type 2 diabetes mellitus without complications; Z88.6 Allergy status to analgesic agent
CPT/HCPCS: 73590-26-LT; 73590-LT; 99283-25

== ENCOUNTER 2020-04-26 14:57 | Emergency (ER) | payer BC ==
[2020-04-26 15:17] VITALS: BP 151/87; PULSE 86
--- NOTE | 2020-04-26 15:19 | EDM.PDOC ---
ED HPI GENERAL MEDICAL PROBLEM - General Chief Complaint: Skin Complaint Stated Complaint: SPIDER BITE ON RT SIDE Time Seen by Provider: 04/26/20 15:02 - History of Present Illness INITIAL COMMENTS - FREE TEXT/NARRATIVE: History of present illness: [] Patient presents with redness swelling and pain to the medial aspect of his upper arm he denies any trauma he thinks he may have had a bug bite there yesterday but he is not sure he denies any fever or chills he is never had anything like this before the redness began about the medial upper arm just proximal to the elbow and is spreading now and now he has pain in his axilla. Nothing seems to make it better or worse Review of systems: As per history of present illness and below otherwise all systems reviewed and negative. Past medical history: As per history of present illness and as reviewed below otherwise noncontributory. Surgical history: As per history of present illness and as reviewed below otherwise noncontributory. Social history: No reported history of drug or alcohol abuse. Family history: As per history of present illness and as reviewed below otherwise noncontributory. Physical exam: HEENT: Atraumatic, normocephalic, pupils reactive, negative for conjunctival pallor or scleral icterus, mucous membranes moist, throat clear, neck supple, nontender, trachea midline. Lungs: Clear to auscultation, breath sounds equal bilaterally, chest nontender. Heart: S1S2, regular, negative for clicks, rubs, or JVD. Abdomen: Soft, nondistended, nontender. Negative for masses or hepatosplenomegaly. Negative for costovertebral tenderness. Pelvis: Stable nontender. Genitourinary: Deferred. Rectal: Deferred. Extremities: Atraumatic, negative for cords or calf pain. Neurovascular unremarkable. Neuro: Awake, alert, oriented. Cranial nerves II through XII unremarkable. Cerebellum unremarkable. Motor and sensory unremarkable throughout. Exam nonfocal. Skin: There is erythema and tenderness and calor medial upper arm and proximal to the elbow consistent with a cellulitis there is a reactive lymph node in the right axilla that is tender Diagnostics: [] Therapeutics: [] Impression: Cellulitis [] Plan: Patient be started on doxycycline follow-up with primary care doctor return to the ED if worsening [] Definitive disposition and diagnosis as appropriate pending reevaluation and review of above. - Related Data Allergies Allergy/AdvReac Type Severity Reaction Status Date / Time aspirin Allergy Nausea and Verified 04/26/20 15:17 Vomiting Home Meds: Home Meds Albuterol [Take Home: Albuterol 18 GM, 1 INH Pack] 2 puff INH ASDIRECTED PRN 04/26/20 [History] Budesonide/Formoterol [Symbicort 160-4.5 MCG] 2 puff INH ASDIRECTED PRN 04/26/20 [History] Doxycycline [Vibra-Tabs] 100 mg PO BID #20 tablet 04/26/20 [Rx] Past Medical History HEENT History: Reports: None Cardiovascular History: Reports: None Respiratory History: Reports: Asthma, COPD Gastrointestinal History: Reports: None Genitourinary History: Reports: None Musculoskeletal History: Reports: None Neurological History: Reports: None Other Neuro History: Patient states has history of viral meningitis. Psychiatric History: Reports: None Endocrine/Metabolic History: Reports: Diabetes, Type II Hematologic History: Reports: None Immunologic History: Reports: None Oncologic (Cancer) History: Reports: None Dermatologic History: Reports: None - Infectious Disease History Infectious Disease History: Reports: Other (See Below) Other Infectious Disease History: staph infection of a wound - Past Surgical History Head Surgeries/Procedures: Reports: None HEENT Surgical History: Reports: Oral Surgery Cardiovascular Surgical History: Reports: None Respiratory Surgical History: Reports: None GI Surgical History: Reports: None Male Surgical History: Reports: None Neurological Surgical History: Reports: None Musculoskeletal Surgical History: Reports: None Oncologic Surgical History: Reports: None Dermatological Surgical History: Reports: None Social & Family History - Family History Family Medical History: Noncontributory - Caffeine Use Caffeine Use: Reports: Energy Drinks ED ROS GENERAL - Review of Systems Review Of Systems: See Below ED EXAM, SKIN/RASH Exam: See Below Departure - Departure Time of Disposition: 15:16 Disposition: Home, Self-Care 01 Condition: Good Clinical Impression: Cellulitis Qualifiers: Site of cellulitis of extremity: upper extremity Laterality: right - Discharge Information *PRESCRIPTION DRUG MONITORING PROGRAM REVIEWED*: Not Applicable *COPY OF PRESCRIPTION DRUG MONITORING REPORT IN PATIENT LUDY: Not Applicable Instructions: Cellulitis, Adult Referrals: Renetta Olson PA [Primary Care Provider] - Additional Instructions: The following information is given to patients seen in the emergency department who are being discharged to home. This information is to outline your options for follow-up care. We provide all patients seen in our emergency department with a follow-up referral. The need for follow-up, as well as the timing and circumstances, are variable depending upon the specifics of your emergency department visit. If you don't have a primary care physician on staff, we will provide you with a referral. We always advise you to contact your personal physician following an emergency department visit to inform them of the circumstance of the visit and for follow-up with them and/or the need for any referrals to a consulting specialist. The emergency department will also refer you to a specialist when appropriate. This referral assures that you have the opportunity for follow-up care with a specialist. All of these measure are taken in an effort to provide you with optimal care, which includes your follow-up. Under all circumstances we always encourage you to contact your private physician who remains a resource for coordinating your care. When calling for follow-up care, please make the office aware that this follow-up is from your recent emergency room visit. If for any reason you are refused follow-up, please contact the [facility] Emergency Department at and asked to speak to the emergency department charge nurse.
== END 2020-04-26 15:31 | disposition home or self-care (01) ==
LOC: MW.ED 14:57
DX: L03.113 Cellulitis of right upper limb (principal); E11.9 Type 2 diabetes mellitus without complications; Z88.8 Allergy status to other drugs, medicaments and biological substances
CPT/HCPCS: 99282; 99283

== ENCOUNTER 2020-06-25 10:32 | Emergency (ER) | payer BC ==
[2020-06-25] MEDS ORDERED: Amoxicillin/Clavulanate K 875-125 MG Tab PO ONE (10:44)
[2020-06-25] MEDS ORDERED: predniSONE 20 MG Tab PO ONE (10:44)
--- NOTE | 2020-06-25 10:47 | EDM.PDOC ---
ED HPI GENERAL MEDICAL PROBLEM - General Chief Complaint: General Stated Complaint: LOSING VOICE Time Seen by Provider: 06/25/20 10:39 Source of Information: Reports: Patient History Limitations: Reports: No Limitations - History of Present Illness INITIAL COMMENTS - FREE TEXT/NARRATIVE: HISTORY AND PHYSICAL: History of present illness: Patient is a 49-year-old male who presents to the emergency room with complaints of losing his voice, right ear pain and sinus headache. He states over the past 2 weeks his voice will intermittently be hoarse and he feels like he is losing his voice. He has had some pain and pressure in the right ear which causes him to have a frontal sinus headache. 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 Patient denies any fever, chills, throat pain, difficulty swallowing, difficulty with speech, change in vision, syncope or near syncope. Denies any chest pain, b ack pain, shortness of breath or cough. Denies any abdominal pain, nausea, vomiting, diarrhea, constipation or dysuria. Has not noted any blood in urine or stool. Patient has been eating and drinking appropriately. Review of systems: As per history of present illness and below otherwise all systems reviewed and negative. Past medical history: As per history of present illness and as reviewed below otherwise noncontributory. Surgical history: As per history of present illness and as reviewed below otherwise noncontributory. Social history: See social history for further information Family history: As per history of present illness and as reviewed below otherwise noncontributory. Physical exam: General: Well developed and well nourished 49 year old male. Alert and orientated x 3. Nontoxic in appearance and in no acute distress. Vital signs are stable and have been reviewed by me. Nursing notes were reviewed. HEENT: Atraumatic, normocephalic, pupils equal and reactive bilaterally, negative for conjunctival pallor or scleral icterus, mucous membranes moist, Left TMs normal, Erythema of the right TM, throat erythematous without exudate (no pillar shifting or soft tissue swelling), neck supple, mild tenderness to right lymph neck without adenopathy, trachea midline. No drooling or trismus noted. No meningeal signs. No hot potato voice noted. Lungs: Clear to auscultation, breath sounds equal bilaterally, chest nontender. Normal work of breathing, no accessory muscles used. Heart: S1S2, regular rate and rhythm without overt murmur Abdomen: Soft, nondistended, nontender. Skin: Intact, warm, dry. No lesions or rashes noted. Hematologic: No petechiae or purpra. Mucosa appropriate color and normal nail bed color and refill. Extremities: Atraumatic, moves all extremities per self without difficulty or deficits, negative for cords or calf pain. Neurovascular unremarkable. Neuro: Awake, alert, oriented. Cranial nerves II through XII unremarkable. Cerebellum unremarkable. Motor and sensory unremarkable throughout. Exam nonfocal. Notes: At this time I do not feel the patient needs any CT scan or lab work done. He does have an ear infection on the right. Will treat with antibiotics. I do feel he needs close follow-up. We talked about the need for follow up with the ENT specialist; I gave him Dr Page's information - as he may need further evaluation of vocal cords etc...We discussed signs and symptoms that would prompt them to return to the Emergency Department. Medication, follow up and supportive care measures were reviewed and discussed. Voices understanding and is agreeable to plan of care. Denies any further questions or concerns at this time. Diagnostics: None Therapeutics: Augmentin, Prednisone Prescription: Augmentin, Prednisone Impression: Otitis Media, Right Pharyngitis Plan: 1. Take your medication as directed. Good handwashing and contact precautions as we discussed. 2. Warm Salt water gargles (rinse and spit) 3-4 x daily. Please get a new tooth brush after completion of your medication 3. Tylenol and or ibuprofen as needed for pain management. 4. Follow-up with ENT specialist, Dr Page in [facility] . Re turn to the ED as needed and as discussed. Definitive disposition and diagnosis as appropriate pending reevaluation and review of above. - Related Data Allergies Allergy/AdvReac Type Severity Reaction Status Date / Time aspirin Allergy Nausea and Verified 06/25/20 10:45 Vomiting Home Meds: Home Meds Albuterol Sulfate [Proair Hfa] 1 puff INH ASDIRECTED 06/25/20 [History] Amoxicillin/Clavulanate K [Augmentin 875-125 MG] 1 tab PO BID 10 Days #20 tablet 06/25/20 [Rx] predniSONE [Prednisone] 40 mg PO DAILY 4 Days #8 tablet 06/25/20 [Rx] Past Medical History HEENT History: Reports: None Cardiovascular History: Reports: None Respiratory History: Reports: Asthma, COPD Gastrointestinal History: Reports: None Genitourinary History: Reports: None Musculoskeletal History: Reports: None Neurological History: Reports: None Other Neuro History: Patient states has history of viral meningitis. Psychiatric History: Reports: None Endocrine/Metabolic History: Reports: Diabetes, Type II Hematologic History: Reports: None Immunologic History: Reports: None Oncologic (Cancer) History: Reports: None Dermatologic History: Reports: None - Infectious Disease History Infectious Disease History: Reports: Other (See Below) Other Infectious Disease History: staph infection of a wound - Past Surgical History Head Surgeries/Procedures: Reports: None HEENT Surgical History: Reports: Oral Surgery Cardiovascular Surgical History: Reports: None Respiratory Surgical History: Reports: None GI Surgical History: Reports: None Male Surgical History: Reports: None Neurological Surgical History: Reports: None Musculoskeletal Surgical History: Reports: None Oncologic Surgical History: Reports: None Dermatological Surgical History: Reports: None Social & Family History - Family History Family Medical History: Noncontributory - Caffeine Use Caffeine Use: Reports: Energy Drinks ED ROS GENERAL - Review of Systems Review Of Systems: Comprehensive ROS is negative, except as noted in HPI. ED EXAM, GENERAL - Physical Exam Exam: See Below (See dictation) Course - Vital Signs Last Recorded V/S: Last Vital Signs Temp 96.6 F L 06/25/20 10:47 Pulse 17 L 06/25/20 10:47 Resp 17 06/25/20 10:47 BP 137/92 H 06/25/20 10:47 Pulse Ox 98 06/25/20 10:47 - Orders/Labs/Meds Meds: Medications Discontinued Medications Generic Name Dose Route Start Last Admin Trade Name Freq PRN Reason Stop Dose Admin Amoxicillin/Clavulanate Potassium 1 tab 06/25/20 10:44 Augmentin 875 Mg/125 Mg PO 06/25/20 10:45 ONETIME ONE Prednisone 40 mg 06/25/20 10:44 Prednisone PO 06/25/20 10:45 ONETIME ONE Departure - Departure Time of Disposition: 10:46 Disposition: Home, Self-Care 01 Clinical Impression: Otitis media Qualifiers: Otitis media type: suppurative Chronicity: acute Laterality: right Recurrence: non-recurrent Spontaneous tympanic membrane rupture: without spontaneous rupture Qualified Code(s): H66.001 - Acute suppurative otitis media without spontaneous rupture of ear drum, right ear Pharyngitis Qualifiers: Pharyngitis/tonsillitis etiology: unspecified etiology Qualified Code(s): J02.9 - Acute pharyngitis, unspecified - Discharge Information Prescriptions: Amoxicillin/Clavulanate K [Augmentin 875-125 MG] 1 tab PO BID 10 Days #20 tablet predniSONE [Prednisone] 40 mg PO DAILY 4 Days #8 tablet Instructions: Otitis Media, Adult, [id number] Referrals: PCP,Not In Area [Primary Care Provider] - Forms: ED Department Discharge Additional Instructions: The following information is given to patients seen in the emergency department who are being discharged to home. This information is to outline your options for follow-up care. We provide all patients seen in our emergency department with a follow-up referral. The need for follow-up, as well as the timing and circumstances, are variable depending upon the specifics of your emergency department visit. If you don't have a primary care physician on staff, we will provide you with a referral. We always advise you to contact your personal physician following an emergency department visit to inform them of the circumstance of the visit and for follow-up with them and/or the need for any referrals to a consulting specialist. The emergency department will also refer you to a specialist when appropriate. This referral assures that you have the opportunity for follow-up care with a specialist. All of these measure are taken in an effort to provide you with optimal care, which includes your follow-up. Under all circumstances we always encourage you to contact your private sury bailey who remains a resource for coordinating your care. When calling for follow-up care, please make the office aware that this follow-up is from your recent emergency room visit. If for any reason you are refused follow-up, please contact the [facility] at and asked to speak to the emergency department charge nurse. [facility] [address] [place] [address] [id number] [place] [address] Thank you for choosing the [facility] emergency department in [place] for your medical needs today. It was a pleasure caring for you. Today you were seen in the emergency department for hoarse voice and right ear pain. 1. Take your medication as directed. Good handwashing and contact precautions as we discussed. 2. Warm Salt water gargles (rinse and spit) 3-4 x daily. Please get a new tooth brush after completion of your medication 3. Tylenol and or ibuprofen as needed for pain management. 4. Follow-up with ENT specialist, Dr Page in [facility] . Return to the ED as needed and as discussed. Sepsis Event Note (ED) - Focused Exam Vital Signs: Vital Signs Temp Pulse Resp BP Pulse Ox 06/25/20 10:47 96.6 F L 17 L 17 137/92 H 98
[2020-06-25 11:09] VITALS: BP 132/70; PULSE 94
== END 2020-06-25 11:12 | disposition home or self-care (01) ==
LOC: MW.ED 10:32
DX: H66.001 Acute suppurative otitis media without spontaneous rupture of ear drum, right ear (principal); J02.9 Acute pharyngitis, unspecified; J44.9 Chronic obstructive pulmonary disease, unspecified; E11.9 Type 2 diabetes mellitus without complications; Z88.8 Allergy status to other drugs, medicaments and biological substances; Z79.899 Other long term (current) drug therapy
CPT/HCPCS: 99283; A9270; 99282

== ENCOUNTER 2023-06-09 11:51 | Emergency (ER) | payer SELFPAY ==
[2023-06-09] MEDS ORDERED: Sodium Chloride 0.9% 10 ML Syringe FLUSH PRN (12:01)
[2023-06-09] MEDS ORDERED: Sodium Chloride 0.9% 2.5 ML Syringe FLUSH PRN (12:01)
[2023-06-09 12:40] LABS: BASOPHILS PERCENT AUTO 0.4 % (0.0-1.5); EOSINOPHILS ABSOLUTE AUTO 0.1 K/uL (0.0-0.7); HEMATOCRIT 46.3 % (38.0-50.0); HEMOGLOBIN 16.1 g/dL (13.0-17.0); LYMPHOCYTES ABSOLUTE AUTO 3.1 K/uL (0.6-2.4); LYMPHOCYTES PERCENT AUTO 37.2 % (16.0-40.0); MEAN CORPUSCULAR HEMOGLOBIN 32.2 pg (27.0-32.0); MEAN CORPUSCULAR HGB CONC 34.8 g/dL (31.0-37.0); MEAN CORPUSCULAR VOLUME 92.6 fL (80.0-98.0); MONOCYTES ABSOLUTE AUTO 0.6 K/uL (0.0-0.8); MONOCYTES PERCENT AUTO 7.5 % (0.0-15.0); NEUTROPHILS ABSOLUTE AUTO 4.5 K/uL (1.4-5.7); NEUTROPHILS PERCENT AUTO 53.9 % (48.0-80.0); NRBC ABSOLUTE 0 K/uL; PLATELET COUNT,PLT 236 K/uL (150-400); WHITE BLOOD CELL COUNT,WBC 8.35 K/uL (4.0-11.0)
[2023-06-09 13:15] LABS: ALBUMIN 3.8 g/dL (3.4-5.0); BILIRUBIN TOTAL 0.3 mg/dL (0.2-1.0); CALCIUM 9.3 mg/dL (8.5-10.1); CARBON DIOXIDE,CO2 23.8 mmol/L (21.0-32.0); EST CRCL DRUG DOSING (CG) 100.47 mL/min; POTASSIUM,K 4.9 mmol/L (3.5-5.1); PROTEIN TOTAL,TP 7.7 g/dL (6.4-8.2)
[2023-06-09 19:01] VITALS: BP 133/82; PULSE 79
== END 2023-06-09 15:37 | disposition home or self-care (01) ==
LOC: MW.ED 11:51
DX: R07.89 Other chest pain (principal); R06.02 Shortness of breath; E11.9 Type 2 diabetes mellitus without complications; Z76.0 Encounter for issue of repeat prescription; Z88.0 Allergy status to penicillin; Z88.8 Allergy status to other drugs, medicaments and biological substances
CPT/HCPCS: 36415; 70450; 71046; 80053; 80307; 83690; 83735; 83880; 84484; 85025; 87635; 93005; 99285; J3490; 93010; 99283; U0002

== ENCOUNTER 2023-10-11 14:34 | Emergency (ER) | payer BC ==
[2023-10-11] MEDS ORDERED: Albuterol/Ipratropium 3.0-0.5 MG/3 ML Neb Soln NEB ONE (14:53)
[2023-10-11] MEDS ORDERED: methylPREDNISolone Sodium Succinate 125 MG/2 ML SDV IVPUSH ONE (14:53)
[2023-10-11 15:33] LABS: CORONAVIRUS COVID-19 NAA NEGATIVE (NEGATIVE); INFLUENZA A NAA POSITIVE (NEGATIVE); INFLUENZA B NAA NEGATIVE (NEGATIVE)
[2023-10-11 15:44] LABS: BASE EXCESS VENOUS -1.6 (-2.0-3.0); PH,VENOUS 7.41 (7.31-7.41)
[2023-10-11 15:47] LABS: BASOPHILS ABSOLUTE AUTO 0.02 K/uL (0.00-0.20); BASOPHILS PERCENT AUTO 0.4 % (0.0-1.0); EOSINOPHILS ABSOLUTE AUTO 0.02 K/uL (0.00-0.45); EOSINOPHILS PERCENT AUTO 0.4 % (0.0-6.0); HEMATOCRIT 43.6 % (42.0-52.0); HEMOGLOBIN 15.5 g/dL (14.0-18.0); IMMATURE GRAN ABSOLUTE AUTO 0.01 K/uL (0.00-0.05); IMMATURE GRAN PERCENT AUTO 0.2 % (0.0-0.4); LYMPHOCYTES ABSOLUTE AUTO 1.31 K/uL (1.00-4.80); MEAN CORPUSCULAR HEMOGLOBIN 32.7 pg (28.0-32.0); MEAN CORPUSCULAR HGB CONC 35.6 g/dL (32.0-36.0); MEAN PLATELET VOLUME 9.3 fL (9.4-12.4); MONOCYTES ABSOLUTE AUTO 0.99 K/uL (0.00-0.80); MONOCYTES PERCENT AUTO 18.2 % (0.0-8.0); NEUTROPHILS PERCENT AUTO 56.8 % (41.0-71.0); PLATELET COUNT,PLT 155 K/uL (150-400); RED BLOOD CELL COUNT 4.74 M/uL (4.52-5.90); WHITE BLOOD CELL COUNT,WBC 5.45 K/uL (3.9-11.3)
[2023-10-11 16:04] LABS: D-DIMER QUANTITATIVE 0.37 mg/L FEU (0.00-0.50); INR 1.01 (0.86-1.11); PTT,PARTIAL THROMBOPLSTIN TIME 30.8 SEC (23.9-30.7)
[2023-10-11 16:13] LABS: ALBUMIN 3.8 g/dL (3.4-5.0); BILIRUBIN TOTAL 0.3 mg/dL (0.2-1.0); CALCIUM 9.1 mg/dL (8.5-10.1); CARBON DIOXIDE,CO2 23.1 mmol/L (21.0-32.0); CREATININE 1.1 mg/dL (0.8-1.3); EST CRCL DRUG DOSING (CG) 92.82 mL/min; MAGNESIUM 1.9 mg/dL (1.8-2.4); POTASSIUM,K 4.4 mmol/L (3.5-5.1); PROTEIN TOTAL,TP 7.7 g/dL (6.4-8.2)
[2023-10-11 16:47] VITALS: BP 133/73; PULSE 101
== END 2023-10-11 16:59 | disposition home or self-care (01) ==
LOC: MW.ED 14:34
DX: J10.1 Influenza due to other identified influenza virus with other respiratory manifestations (principal); J44.9 Chronic obstructive pulmonary disease, unspecified; E11.9 Type 2 diabetes mellitus without complications; Z79.899 Other long term (current) drug therapy; Z20.822 Contact with and (suspected) exposure to COVID-19; Z88.0 Allergy status to penicillin; Z88.6 Allergy status to analgesic agent
CPT/HCPCS: 0240U; 36415; 71045; 80053; 82803; 83735; 84484; 85025; 85379; 85610; 85730; 93005; 96374; 99285; J2930; J7620-GY

== ENCOUNTER 2024-10-26 17:41 | Emergency (ER) | payer BC ==
[2024-10-26] MEDS: Sodium Chloride 0.9% 1,000 ML IV ONE (18:34)
[2024-10-26 18:43] LABS: BASOPHILS ABSOLUTE AUTO 0.04 K/uL (0.00-0.20); BASOPHILS PERCENT AUTO 0.5 % (0.0-1.0); EOSINOPHILS ABSOLUTE AUTO 0.11 K/uL (0.00-0.45); EOSINOPHILS PERCENT AUTO 1.3 % (0.0-6.0); HEMATOCRIT 44.7 % (42.0-52.0); IMMATURE GRAN ABSOLUTE AUTO 0.02 K/uL (0.00-0.05); IMMATURE GRAN PERCENT AUTO 0.2 % (0.0-0.4); LYMPHOCYTES ABSOLUTE AUTO 2.93 K/uL (1.00-4.80); LYMPHOCYTES PERCENT AUTO 34.6 % (24.0-44.0); MEAN CORPUSCULAR HGB CONC 35.8 g/dL (32.0-36.0); MEAN CORPUSCULAR VOLUME 92.2 fL (83.0-99.0); MEAN PLATELET VOLUME 9.2 fL (9.4-12.4); MONOCYTES ABSOLUTE AUTO 0.62 K/uL (0.00-0.80); MONOCYTES PERCENT AUTO 7.3 % (0.0-8.0); NEUTROPHILS ABSOLUTE AUTO 4.76 K/uL (1.80-7.70); NEUTROPHILS PERCENT AUTO 56.1 % (41.0-71.0); PLATELET COUNT,PLT 217 K/uL (150-400); RED BLOOD CELL COUNT 4.85 M/uL (4.52-5.90); WHITE BLOOD CELL COUNT,WBC 8.48 K/uL (3.9-11.3)
[2024-10-26] MEDS: LORazepam 2 MG/ML SDV IVPUSH ONE (18:50)
[2024-10-26 19:15] LABS: A/G RATIO 0.9 (0.9-1.6); ALBUMIN 3.7 g/dL (3.4-5.0); BILIRUBIN TOTAL 0.4 mg/dL (0.2-1.0); CALCIUM 9.4 mg/dL (8.5-10.1); CREATININE 0.9 mg/dL (0.8-1.3); EST CRCL DRUG DOSING (CG) 112.15 mL/min; MAGNESIUM 1.9 mg/dL (1.8-2.4); POTASSIUM,K 4.9 mmol/L (3.5-5.1); PROTEIN TOTAL,TP 7.8 g/dL (6.4-8.2); TSH ULTRASENSITIVE 0.56 uIU/mL (0.36-3.74)
[2024-10-26 20:06] LABS: HEMOGLOBIN A1C 10.2 %
[2024-10-26 20:32] VITALS: BP 110/54; PULSE 79
== END 2024-10-26 20:33 | disposition home or self-care (01) ==
LOC: MW.ED 17:41
DX: R51.9 Headache, unspecified (principal); E11.65 Type 2 diabetes mellitus with hyperglycemia; J44.89 Other specified chronic obstructive pulmonary disease; Z75.8 Other problems related to medical facilities and other health care; Z88.0 Allergy status to penicillin; Z88.8 Allergy status to other drugs, medicaments and biological substances; Z79.899 Other long term (current) drug therapy
CPT/HCPCS: 36415; 70450; 70450-26; 71045; 71045-26; 80053; 83036; 83735; 83880; 84443; 84484; 85025; 87428-QW; 93005; 96361; 96374; 99284; 99285-25; J2060; J7030

== ENCOUNTER 2024-10-29 11:31 | Emergency (ER) | payer SELFPAY ==
[2024-10-29 12:49] LABS: BASOPHILS ABSOLUTE AUTO 0.05 K/uL (0.00-0.20); BASOPHILS PERCENT AUTO 0.6 % (0.0-1.0); EOSINOPHILS ABSOLUTE AUTO 0.11 K/uL (0.00-0.45); EOSINOPHILS PERCENT AUTO 1.3 % (0.0-6.0); HEMATOCRIT 44.9 % (42.0-52.0); HEMOGLOBIN 15.7 g/dL (14.0-18.0); IMMATURE GRAN ABSOLUTE AUTO 0.02 K/uL (0.00-0.05); IMMATURE GRAN PERCENT AUTO 0.2 % (0.0-0.4); LYMPHOCYTES ABSOLUTE AUTO 3.47 K/uL (1.00-4.80); LYMPHOCYTES PERCENT AUTO 40.8 % (24.0-44.0); MEAN CORPUSCULAR HEMOGLOBIN 32.6 pg (28.0-32.0); MEAN CORPUSCULAR VOLUME 93.3 fL (83.0-99.0); MEAN PLATELET VOLUME 9.1 fL (9.4-12.4); MONOCYTES ABSOLUTE AUTO 0.66 K/uL (0.00-0.80); MONOCYTES PERCENT AUTO 7.8 % (0.0-8.0); NEUTROPHILS ABSOLUTE AUTO 4.19 K/uL (1.80-7.70); NEUTROPHILS PERCENT AUTO 49.3 % (41.0-71.0); PLATELET COUNT,PLT 205 K/uL (150-400); RED BLOOD CELL COUNT 4.81 M/uL (4.52-5.90)
[2024-10-29] MEDS: Albuterol/Ipratropium 3.0-0.5 MG/3 ML Neb Soln NEB ONE (13:19)
[2024-10-29] MEDS: methylPREDNISolone Sodium Succinate 125 MG/2 ML SDV IVPUSH ONE (13:19)
[2024-10-29 13:22] LABS: A/G RATIO 0.9 (0.9-1.6); ALBUMIN 3.5 g/dL (3.4-5.0); BILIRUBIN TOTAL 0.4 mg/dL (0.2-1.0); CALCIUM 8.9 mg/dL (8.5-10.1); CARBON DIOXIDE,CO2 24.3 mmol/L (21.0-32.0); CREATININE 0.9 mg/dL (0.8-1.3); EST CRCL DRUG DOSING (CG) 112.15 mL/min; MAGNESIUM 1.8 mg/dL (1.8-2.4); POTASSIUM,K 4.5 mmol/L (3.5-5.1); PROTEIN TOTAL,TP 7.4 g/dL (6.4-8.2)
[2024-10-29 13:50] LABS: BICARBONATE,ARTERIAL 21 mEq/L (22-26); PCO2 ARTERIAL 35 mmHG (35-45); PO2 ARTERIAL 78 mmHG (80-105)
[2024-10-29 18:57] VITALS: BP 96/62; PULSE 88
== END 2024-10-29 14:00 | disposition home or self-care (01) ==
LOC: MW.ED 11:31
DX: J06.9 Acute upper respiratory infection, unspecified (principal); J44.89 Other specified chronic obstructive pulmonary disease; E11.9 Type 2 diabetes mellitus without complications; F17.210 Nicotine dependence, cigarettes, uncomplicated; Z88.0 Allergy status to penicillin; Z88.6 Allergy status to analgesic agent; Z79.51 Long term (current) use of inhaled steroids; Z79.899 Other long term (current) drug therapy; Z75.8 Other problems related to medical facilities and other health care
CPT/HCPCS: 36415; 36600; 71046; 80053; 82803; 83690; 83735; 83880; 84484; 85025; 85379; 87428; 93005; 96374; 99285; J2919; J7620-GY